=== PATIENT | female | born 1965 | race American Indian/Alaskan Native ===

== ENCOUNTER 2017-03-18 09:04 | Emergency (ER) | payer MEDICAID, OTHER ==
[2017-03-18 09:24] VITALS: TEMP 97.6; O2SAT 100
[2017-03-18 09:28] VITALS: BMI 25.0
[2017-03-18] MEDS ORDERED: Lidocaine 5% Patch TD STA (09:44)
--- NOTE | 2017-03-18 10:14 | ED PDOC ---
HPI: Back Time Seen by Provider: 03/18/17 09:36 Chief Complaint (Nursing): Back Pain Chief Complaint (Provider): Back Pain History Per: Patient History/Exam Limitations: no limitations Onset/Duration Of Symptoms: Days (x1 month) Current Symptoms Are (Timing): Still Present Additional Complaint(s): 51 year old female with a past medical history of HTN and sciatica, who presents to the ED due to return of sciatic pain x1 month. States pain is in lower back and radiates to right buttock and right upper leg. States pain is worse with sitting or movements. Reports taking Aleve with minimal relief and taking an unknown muscle relaxant prescribed several weeks ago at her clinic which she discontinued due to somnolence. Denies weakness, numbness, or trouble with urination. Is ambulating effectively. Patient reports blood clot after . Not currently on blood thinners. PMD: None provided Past Medical History Reviewed: Historical Data, Nursing Documentation, Vital Signs Vital Signs: Last Vital Signs Temp 97.6 F 03/18/17 09:24 Pulse 81 03/18/17 09:24 Resp 16 03/18/17 09:24 BP 135/51 L 03/18/17 09:24 Pulse Ox 100 03/18/17 09:24 - Medical History PMH: HTN Other PMH: Sciatica - Surgical History Surgical History: No Surg Hx - Family History Family History: States: Unknown Family Hx - Social History Current smoker - smoking cessation education provided: No Alcohol: None Drugs: Denies - Home Medications Home Medications: Ambulatory Orders Medication Instructions Recorded Famotidine [Pepcid] 20 mg PO DAILY PRN #6 tab 11/15/13 Lidocaine 5% [Lidoderm] 1 patch TP DAILY PRN #10 patch 03/18/17 Naproxen [Naprosyn] 500 mg PO BID PRN #14 tablet 03/18/17 traMADol [Ultram] 50 mg PO TID PRN #12 tab 03/18/17 - Allergies Allergies/Adverse Reactions: Allergies Allergy/AdvReac Type Severity Reaction Status Date / Time amlodipine Allergy DIZZINESS Verified 03/18/17 09:39 Review of Systems ROS Statement: Except As Marked, All Systems Reviewed And Found Negative Genitourinary Female: Negative for: Frequency, Incontinence Musculoskeletal: Positive for: Back Pain, Leg Pain (right upper leg) Neurological: Negative for: Weakness, Numbness Physical Exam - Reviewed Nursing Documentation Reviewed: Yes Vital Signs Reviewed: Yes - Physical Exam Appears: Positive for: Non-toxic, No Acute Distress Head Exam: Positive for: ATRAUMATIC, NORMAL INSPECTION, NORMOCEPHALIC Skin: Positive for: Normal Color, Warm Eye Exam: Positive for: EOMI, Normal appearance, PERRL Neck: Positive for: Normal, Painless ROM. Negative for: Supple Cardiovascular/Chest: Positive for: Regular Rate, Rhythm. Negative for: Murmur Respiratory: Positive for: Normal Breath Sounds. Negative for: Respiratory Distress Gastrointestinal/Abdominal: Positive for: Normal Exam, Bowel Sounds, Soft. Negative for: Tenderness Back: Positive for: Other (tenderness to right lower lumbar region into right buttock, skin not examined, patient states no erythema or induration to skin) Extremity: Positive for: Normal ROM. Negative for: Pedal Edema, Deformity Neurologic/Psych: Positive for: Alert, Oriented (x3). Negative for: Motor/ Sensory Deficits - ECG O2 Sat by Pulse Oximetry: 100 (RA) Pulse Ox Interpretation: Normal Medical Decision Making Medical Decision Making: Time: 09:40 Initial Impression: Sciatica Plan: --ED urine --ED urine dipstick --Lidoderm patch --Toradol 30 mg IM --Ultram 50 mg PO --Reevaluation Time: 10:45 --Upon provider reevaluation patient is feeling better, reports pain is much improved, and ambulating effectively. Patient will be discharged with Rx for Ultram, Naproxen, and Lidoderm patches. Recommended followup, as well as daily stretching and heat therapy. Return if symptoms persist or worsen. Scribe Attestation: Documented by Donato Tse, acting as a scribe for Ashwin Mcclellan III, DO. Provider Scribe Attestation: All medical record entries made by the Scribe were at my direction and personally dictated by me. I have reviewed the chart and agree that the record accurately reflects my personal performance of the history, physical exam, medical decision making, and the department course for this patient. I have also personally directed, reviewed, and agree with the discharge instructions and disposition. Disposition - Clinical Impression Clinical Impression: Sciatic pain - Patient ED Disposition Is Patient to be Admitted: No Counseled Patient/Family Regarding: Diagnosis, Need For Followup, Rx Given - Disposition [facility] Disposition: Routine/Home Disposition Time: 10:45 Additional Instructions: Return to ER for any worse pain, weakness, numbness, difficulty urinating or any concern. Use medications as directed. Recommend gentle stretching and heat therapy to area 3x daily. Prescriptions: Lidocaine 5% [Lidoderm] 1 patch TP DAILY PRN #10 patch PRN Reason: Other Naproxen [Naprosyn] 500 mg PO BID PRN #14 tablet PRN Reason: Pain, Moderate (4-7) traMADol [Ultram] 50 mg PO TID PRN #12 tab PRN Reason: Pain, Moderate (4-7) Instructions: Sciatica (ED), Lumbar Radiculopathy (ED), Back Exercises (ED) Forms: [employer] ([employer]ans[employer])
[2017-03-18] MEDS ORDERED: Lidocaine 5% Patch TD ONE (10:17)
[2017-03-18 11:13] VITALS: BP 124/79; PULSE 78; RESP 14
== END 2017-03-18 11:12 | disposition home or self-care (01) ==
LOC: H.ER 09:04
DX: M54.30 Sciatica, unspecified side (principal); I10 Essential (primary) hypertension; M54.12 Radiculopathy, cervical region
CPT/HCPCS: 81025; 96372; 99283; J1885